=== PATIENT | female | born 1990 | race Caucasian/White ===

== ENCOUNTER 2022-07-28 17:07 | Inpatient (IN) | payer OTHER, SELFPAY ==
[2022-07-28 17:28] VITALS: BMI 35.7
[2022-07-28 17:30] VITALS: RESP 16; TEMP 36.9
[2022-07-28 17:35] VITALS: BP 133/84; PULSE 85
--- NOTE | 2022-07-28 18:12 | P.OBHP_ITS ---
OB - H&P: HPI Labor/Induction History of Present Illness Time Seen by Provider: 18:12 Date Seen: 07/28/22 Chief Complaint: The patient is a 32 year old 1 para 0 at 39 weeks gestation by LMP and consistent with 9 week ultrasound, who presents for induction of labor. Patient's primary FMOB is Dr. Lawrence, I am starting induction on her behalf. Chief complaint: IOL for EFW greater than 90% : 1 Para: 0 Narrative: Joanne Lee is a 32 year old female who presents for IOL for presumed macrosomia at 39 weeks gestation. Last ultrasound was EFW was 90%ile with abdominal circumference at 98th percentile. Per up to date, the recommendation is to consider induction with EFW between 4000 and 20582 grams at 39 weeks without diabetes. Patient feels well. She had some BH contractions over weekend. Otherwise feels well. No headaches ,vision changes. Mild edema in feet. Baby has been moving well. History of Present Dating criteria: based on LMP care: good care Ultrasounds: normal 1st trimester US and normal mid trimester US complications comment: macrosomia Medical complications: none Labs Blood type: O (+) positive Rubella: immune RPR/VDLR: nonreactive GBS status: negative HBsAG: negative Review of Systems Status of ROS: Reports: 10 or more systems reviewed and unremarkable except as noted in History and below Meds Home Medications and Allergies Home Medications Medication Instructions Recorded Confirmed Type ferrous sulfate 325 mg (65 mg 325 mg PO Q1D 07/28/22 07/28/22 History iron) tablet (FeroSul) vitamins no.144-folic 2 tab PO Q24H 07/28/22 07/28/22 History acid 400 mcg chewable tablet () Allergies Allergy/AdvReac Type Severity Reaction Status Date / Time No Known Drug Allergies Allergy Verified 07/28/22 18:20 OB - H&P: Exam Physical Exam: Vital signs: Temp Pulse Resp BP 98.5 F 85 16 133/84 07/28/22 17:30 07/28/22 17:35 07/28/22 17:30 07/28/22 17:35 Constitutional: Constitutional: no acute distress Routine HEENT Exam: Head: Present normocephalic Routine Neck Exam: Neck: Present full ROM Detailed Neck Exam: Thyroids: Thyroid: Present normal Routine Respiratory Exam: Respiratory: Present CTA bilaterally; Absent crackles Routine Cardiovascular Exam: Cardiovascular: RRR, S1 and S2 Routine Exam: Perineum Description: Normal Detailed Labor and Delivery Exam: Patient Gravid: Yes Dilation (cm): 1 Effacement (%): 20 Cervix position: posterior Consistency: medium Cervical ripeness score: 2 Tachysystole: No Contraction intensity: Mild Comments: irregular conractions Fetus (Single): Station: -3 Amniotic Membrane Status: intact Heart Rate Baseline: 140 Monitor Accelerations: Absent Monitor Decelerations: None Academic Department Chair Variability: Moderate (6-25) Routine Back/Spine/Pelvis Exam: Back/Spine: full ROM Routine Skin Exam: Present intact Routine Neurological Exam: Present alert and oriented X3 Routine Psychiatric Exam: Present normal affect OB - Problem Based A/P Additional Plan (1) Term : Status: Acute (2) Macrosomia affecting management of mother: Status: Acute Plan - IOL for size >90%ile - Cook catheter placed without difficulty. Filled with 60 mls on uterine and vaginal balloons. Baby and patient tolerated well. - Plan on low dose pitocin starting at midnight - Dr. Lawrence is available and will take over at 10pm this evening. Please call prn for concerns. Delivery/Labor/Induction Plan Plan: induction Induction method: Intracervical balloon catheter
[2022-07-28 19:26] VITALS: BP 143/93; PULSE 86
[2022-07-28 19:42] VITALS: BP 143/84; PULSE 80; RESP 18; TEMP 36.9
[2022-07-28 21:33] VITALS: BP 143/77; PULSE 84; RESP 18; TEMP 36.9
[2022-07-28 21:35] LABS: Basophils Absolute Auto 0.03 K/uL (0.00-0.30); Basophils Percent Auto 0.4 % (0.0-3.0); Eosinophils Absolute Auto 0.03 K/uL (0.00-0.50); Eosinophils Percent Auto 0.4 % (0.0-7.0); Hematocrit 37.1 % (33.0-51.0); Hemoglobin* 11.6 gm/dL (12.0-16.0); Immature Granulocytes Abs Auto 0.02 K/uL (0.00-0.30); Immature Granulocytes Pct Auto 0.2 %; Lymphocytes Percent Auto 11.6 % (20-44); Mean Corpuscular HGB Conc 31 gm/dL (32-36); Mean Corpuscular Hemoglobin 29 pg (26-34); Mean Corpuscular Volume 92 fL (80-100); Monocytes Percent Auto 6.4 % (0.0-11.0); Platelet Count* 255 K/uL (140-440); RDW Coefficient of Variation % 16.2 % (11.5-15.5); Red Blood Count 4.04 m/uL (4.00-5.20); White Blood Count* 8.43 K/uL (4.50-11.00)
[2022-07-28] MEDS: MORPHINE 10 MG/ML inj IM (21:36)
[2022-07-28] MEDS: hydrOXYzine pamoate 25 MG CAPSULE 100 MG PO (21:37)
[2022-07-28 21:38] LABS: Slide Review Reflex No
--- NOTE | 2022-07-28 21:56 | PM.OBPNL ---
Subjective Time Seen by Provider: 21:56 Date Seen: 07/28/22 Narrative: Called to patient's bedside for bleeding. Objective Exam: Cook catheter in place, scant bleeding Vital Signs: Last Vital Signs Temp 98.4 F 07/28/22 21:33 Pulse 84 07/28/22 21:33 Resp 18 07/28/22 21:33 BP 143/77 H 07/28/22 21:33 Contractions Monitor mode: External Contraction Frequency: 3-5 Contraction pattern: Irregular Contraction intensity: Mild Assessment Assessment: induction ongoing Station: -3 Heart Rate Baseline: 140 Monitor Accelerations: Absent Monitor Decelerations: None Plan Plan: - bleeding after placement of cook catheter-- thought to be bloody show from procedure. - Bleeding is decreasing, will continue to monitor. If it becomes more brisk would recommend removing catheter - Continuous monitoring - Pitocin (low dose) at 11pm - Dr. Lawrence is taking over care, may be reached with further concerns.
[2022-07-28] MEDS: OXYTOCIN 30 unit/500 ML in NS 30 UNIT/500 ML BAG IVPB (23:04)
[2022-07-28] MEDS: LACTATED RINGERS 1000 ML 1,000 ML 125 ML IV (23:05)
[2022-07-28 23:44] VITALS: BP 142/79; PULSE 91; RESP 16; TEMP 37.1
[2022-07-29] VITALS (42 sets, daily range): BP systolic 120–175; BP diastolic 60–91; PULSE 79–120; RESP 16–18; TEMP 36.6–37.1; O2SAT 98–100
[2022-07-29 00:22] LABS: Aspartate Amino Transferase* 27 U/L (12-35); Creatinine* 0.5 mg/dL (0.5-1.5); Est. Creatinine Clearance* 148.41; Estimated Glomerular Filt Rate 126 ml/min; Uric Acid* 4.3 mg/dL (2.2-8.4)
[2022-07-29 00:23] LABS: Alanine Aminotransferase* 19 U/L (4-35); Blood Urea Nitrogen* 8 mg/dL (5-24)
[2022-07-29 00:30] LABS: INR 0.93 (0.91-1.10)
[2022-07-29 00:33] LABS: Fibrinogen* 476 mg/dL (200-450); Partial Thromboplastin Time* 28 Seconds (23-33)
[2022-07-29 04:48] LABS: Total Protein Urine 10 mg/dL
[2022-07-29 04:49] LABS: Creatinine Urine 318.9 mg/dL
[2022-07-29] MEDS: LACTATED RINGERS 1000 ML 1,000 ML 117 ML IV (06:42)
--- NOTE | 2022-07-29 06:48 | PM.OBPNL ---
Subjective Time Seen by Provider: 06:48 Date Seen: 07/29/22 Narrative: 32 yo G1 at 39 weeks gestation admitted last night for induction due to EFW >90%. Cook catheter placed last night. Initially had some vaginal bleeding after placement but no significant bleeding since per nursing. Cook removed this morning after 12 hours. pt reports not feeling much now catheter is out. Overnight bp's were elevated to meet criteria for gestational htn in 140's/70-80's ranged. Preeclamptic labs/urine were negative. 1 bp this morning from automatic cuff was elevated further at 175/82 but catheter was in process of being taken out and pt was moving while cuff went off per pt and RN. recheck was 147/86. pt and nursing otherwise without ?'s or concerns. Objective Vital Signs: Last Vital Signs Temp 98.4 F 07/29/22 06:12 Pulse 103 H 07/29/22 06:27 Resp 16 07/29/22 06:12 BP 147/86 H 07/29/22 06:27 Pulse Ox 98 07/29/22 06:12 Pelvic Exam Dilation (cm): 5 Effacement (%): 60 Station: -3 Comments: cervix stretchy, head palpated but not engaged. Contractions Monitor mode: External Contraction Frequency: q5-10min Contraction pattern: Irregular Contraction intensity: Mild Pitocin Rate (mU/min): 8 Assessment Assessment: induction ongoing Station: -3 Heart Rate Baseline: 140 Performance Analyst Variability: Moderate (6-25) Monitor Accelerations: Present Monitor Decelerations: None Plan Plan: Induction: cook removed this morning. plan regular dose pitocin prototcol. known gbs negative. discussed induction course with pt Gestational htn: labs overnight okay. Continue monitor bp and s/s.
[2022-07-29] MEDS: TRANEXAMIC ACID 100 MG/ML INJ 1000 MG IV (07:45)
[2022-07-29] MEDS: LACTATED RINGERS 1000 ML 1,000 ML 105 ML IV (15:05)
--- NOTE | 2022-07-29 19:23 | P.OBPN_ITS ---
Subjective Time Seen by Provider: 07:00 Date Seen: 07/29/22 Narrative: Induction continues. Cook removed this morning and pitocin protocol changed to regular dosing protocol with cook removal this morning. Currently on 24 of pitocin. Most the day did not feel much in terms of contractions but last couple hours feeling more. pt rates still mild and RN reports palpate moderate. Per nursing, bp's mostly 130's/70-80's today. no bp's in severe range during day shift. remains asymptomatic Objective Vital Signs: Last Vital Signs Temp 97.8 F 07/29/22 16:54 Pulse 79 07/29/22 18:18 Resp 18 07/29/22 16:54 BP 137/73 07/29/22 18:18 Pulse Ox 98 07/29/22 06:12 Pelvic Exam Dilation (cm): 5 Effacement (%): 60 Station: -2 Comments: head engaged and not ballotable. Contractions Monitor mode: External Contraction pattern: Regular Contraction intensity: Moderate Pitocin Rate (mU/min): 24 Assessment Assessment: induction ongoing Station: -2 Amniotic Membrane Status: AROM Status: Category l Heart Rate Baseline: 150 Slag Dumper Variability: Moderate (6-25) Monitor Accelerations: Present Monitor Decelerations: None Plan Plan: induction at 39wks due to EFW> 90% -s/p cook overnight and pitocin all day. cervix remains 5cm but head has come down significantly as was prev floating and not central and now well applied. Discussed AROM and risks vs benefits and pt in agreement with AROM. AROM p erformed with blood tinged fluid. -Newly diagnosed gestational htn during induction. initial preeclamptic labs wnl. plan recheck tonight -All ?'s answered
[2022-07-29] MEDS: LACTATED RINGERS 1000 ML 1,000 ML IV (21:04)
[2022-07-29] MEDS: ROPIVACAINE 0.2 % PF 10 ML INJ 20 MG EPIDURAL (21:08)
[2022-07-29] MEDS: LIDOCAINE 2% (PF) 5 ML VIAL EPIDURAL (21:08)
--- NOTE | 2022-07-29 21:32 | PM.ANBPRC ---
PFSH PFSH Social History What is your current living situation: I presently have a place to live Problems where you live: no known problems In the past 12 months, utilities in danger of being shut off: no In the past 12 mos, have been you worried that your food would run out before you had money to buy more?: never true In the past 12 mos, the food you bought just didn't last and you didn't have money to buy more?: never true Smoking Status: Never smoker How often does anyone, including family, friends and others, physically hurt you: How often does anyone, including family, friends and others, insult or talk down to you: How often does anyone, including family, friends and others, threaten you with harm: How often does anyone, including family, friends and others, scream or curse at you: Meds Home Medications and Allergies Home Medications Medication Instructions Recorded Confirmed Type ferrous sulfate 325 mg (65 mg 325 mg PO Q1D 07/28/22 07/28/22 History iron) tablet (FeroSul) vitamins no.144-folic 2 tab PO Q24H 07/28/22 07/28/22 History acid 400 mcg chewable tablet () Allergies Allergy/AdvReac Type Severity Reaction Status Date / Time No Known Drug Allergies Allergy Verified 07/28/22 21:18 Results Labs Labs: Laboratory Results - last 24 hr 07/28/22 07/29/22 21:27 04:21 WBC 8.43 RBC 4.04 Hgb 11.6 L Hct 37.1 MCV 92 MCH 29 MCHC 31 L RDW Coeff of Joie 16.2 H Plt Count 255 Neut % (Auto) 81.0 H Lymph % (Auto) 11.6 L [place] % (Auto) 6.4 Eos % (Auto) 0.4 Baso % (Auto) 0.4 Neut # (Auto) 6.80 Lymph # (Auto) 1.00 [place] # (Auto) 0.50 Eos # (Auto) 0.03 Baso # (Auto) 0.03 INR 0.93 APTT 28 Fibrinogen 476 H BUN 8 Creatinine 0.5 Estimated Creat Clear 148.41 Estimated GFR 126 Uric Acid 4.3 AST 27 ALT 19 Urine Creatinine 318.9 Protein/Creatinin Ratio 0.00 Urine Total Protein 10 Blood Type O Positive Antibody Screen NEGATIVE Vital Signs Vital Signs: Last Vital Signs Temp 97.8 F 07/29/22 20:03 Pulse 102 H 07/29/22 21:31 Resp 18 07/29/22 20:03 BP 140/70 H 07/29/22 21:31 Pulse Ox 100 07/29/22 21:30 Weight: 100.471 kg Height: 167.64 cm Anesthesia Procedures Epidural Insertion Patient Location: OB Start Time: 08:45 Stop Time: 21:34 Start Date: 07/29/22 Stop Date: 07/29/22 Reason for Block: procedure for pain Patient Position: sitting Performed By: Jorgito Amaral Preanesthetic Checklist: IV checked, risks and benefits discussed, surgical consent, monitors and equipment checked, pre-op evaluation, timeout performed and anesthesia consent Prep: chlorhexidine gluconate Monitoring: blood pressure monitoring, continuous pulse oximetry and heart rate Approach: midline Vertebral Space: lumbar (1-5) Epidural Technique: CELINA air Needle Type: Tuohy needle Injection Technique: continuous catheter Needle gauge: 17 Needle Length (cm): 10 cm Needle Insertion Depth (cm): 7 Catheter Gauge: 19 Catheter Type: multi-orifice Catheter at skin depth (cm): 13 Test Dose Result: negative and lidocaine 1.5% with epinephrine 1 to 200,000
--- NOTE | 2022-07-29 22:15 | PM.OBPNL ---
Subjective Time Seen by Provider: 22:15 Date Seen: 07/29/22 Narrative: pt has now requested and received epidural--was breathing through ctxs and reported 7/10. now comfortable with epidural. FHT baseline did increase shortly before epidural placed with baseline increasing from 150's to 160's. Received IVF bolus with epidural and has returned now to 150's. had moderate variability and Accels with the tachycardia that has now resolved. Objective Vital Signs: Last Vital Signs Temp 98.5 F 07/29/22 22:09 Pulse 96 07/29/22 22:09 Resp 18 07/29/22 22:09 BP 141/72 H 07/29/22 22:09 Pulse Ox 100 07/29/22 21:30 Pelvic Exam Dilation (cm): 6 Effacement (%): 80 Station: -2 Contractions Monitor mode: External Contraction pattern: Regular Contraction intensity: Moderate Pitocin Rate (mU/min): 24 Assessment Assessment: active labor Station: -2 Amniotic Membrane Status: AROM Status: Category l Heart Rate Baseline: 150 [facility] Variability: Moderate (6-25) Monitor Decelerations: None Plan Plan: 1. now transitioning into active labor, plan continue current 2. FYI sent to OB oncall due to increased risk c/s, shoulder dystocia and PPH
[2022-07-29 22:46] LABS: Platelet Count* 256 K/uL (140-440)
[2022-07-29 22:47] LABS: Alanine Aminotransferase* 17 U/L (4-35); Aspartate Amino Transferase* 22 U/L (12-35); Creatinine* 0.5 mg/dL (0.5-1.5); Est. Creatinine Clearance* 148.41; Estimated Glomerular Filt Rate 126 ml/min
[2022-07-29] MEDS: LACTATED RINGERS 1000 ML 1,000 ML 125 ML IV (23:14)
[2022-07-30] VITALS (64 sets, daily range): BP systolic 106–142; BP diastolic 51–88; PULSE 82–122; RESP 16–18; TEMP 36.3–38.1; O2SAT 94–97
--- NOTE | 2022-07-30 00:39 | P.OBPN_ITS ---
Subjective Time Seen by Provider: 00:30 Date Seen: 07/30/22 Narrative: pt resting comfortably. RN checked and reported no cervical change. Objective Vital Signs: Last Vital Signs Temp 98.2 F 07/30/22 00:09 Pulse 102 H 07/30/22 00:09 Resp 18 07/30/22 00:09 BP 142/84 H 07/30/22 00:09 Pulse Ox 100 07/29/22 21:30 Pelvic Exam Dilation (cm): 6 Effacement (%): 80 Station: -2 Contractions Monitor mode: External Contraction Frequency: q3min Contraction pattern: Regular Contraction intensity: Moderate Pitocin Rate (mU/min): 26 Assessment Assessment: induction ongoing Station: -2 Amniotic Membrane Status: AROM Status: Category l Heart Rate Baseline: 155 Electrical Research Engineer Variability: Moderate (6-25) Monitor Accelerations: Present Monitor Decelerations: None Plan Plan: Cervix unchanged in last 2 hours. Discussed placing IUPC and this was placed without difficulty. Will monitor MVU's and determine next steps based on values. reviewed with pt. She did not have any ?'s
[2022-07-30] MEDS: ACETAMINOPHEN 500 MG TABLET 1000 MG PO (03:00)
--- NOTE | 2022-07-30 03:26 | P.OBPN_ITS ---
Subjective Time Seen by Provider: 03:27 Date Seen: 07/30/22 Narrative: I was notified that pt had developed tachycardia. We discussed IVF bolus and position change. Maternal temp 100.2, repeat later 100.6. Maternal pulse has been typically 95-110 over last 24 hours but increased to 117 when checked with temp 100.6. Pt reported mild headache starting, tylenol given. She is feeling contractions in lower pelvis but comfortable inbetween. BP's remain below severe range. Objective Vital Signs: Last Vital Signs Temp 100.6 F H 07/30/22 02:59 Pulse 117 H 07/30/22 03:23 Resp 18 07/30/22 01:00 BP 127/73 07/30/22 03:23 Pulse Ox 100 07/29/22 21:30 Pelvic Exam Dilation (cm): 6 Effacement (%): 90 Station: -1 Contractions Monitor mode: Internal Contraction Frequency: q3-4min Contraction pattern: Regular Pitocin Rate (mU/min): 27 Assessment Assessment: induction ongoing Station: -1 Amniotic Membrane Status: AROM Status: Category ll Heart Rate Baseline: 165 Combiner Operator Variability: Moderate (6-25) Monitor Accelerations: Present Monitor Decelerations: None Tracing Comments: FHT baseline has increased from 150's to 160-170's and remained in tachycardia range. Plan Plan: G1 at 39wks being induced for EFW >90%, now s/p Cook, pitocin and AROM. IUPC with variable MVU's adequate at times but <200 at times. Has made very slow cervical change. Now with s/s concerning for chorio and will start abxs. If headache not improve with tylenol, will repeat preeclamptic labs. BPs below severe range. Discussed case with Dr Pang, OB surgeon chief compressor station engineer. Plan at this time is to start abx for chorio, if tachycardia improves, plan increase pitocin for adequate MVU's. If not improving, will reassess. Discussed with pt and her mom at length. They did not have any ?'s.
[2022-07-30] MEDS: AMPICILLIN 2 GM in 0.9 % SODIUM CHLORIDE Mini-bag 100 ML IVPB ×2 (03:33→09:03)
[2022-07-30] MEDS: LACTATED RINGERS 1000 ML 1,000 ML 500 ML IV (03:34)
[2022-07-30] MEDS: ROPIVACAINE 0.2% 100 ml 100 ML 12 MG EPIDURAL (04:29)
[2022-07-30] MEDS: OXYTOCIN 30 unit/500 ML in NS 30 UNIT/500 ML BAG 27 UNIT IVPB (04:49)
--- NOTE | 2022-07-30 06:51 | P.OBCN_ITS ---
OB - CN: HPI Date of Consult Time Seen by Provider: 06:51 Date Seen: 07/30/22 Patient: [facility] Patient Consult date: 07/30/22 Requesting Physician: Diann Lawrence DO Primary Care Provider: Not a Local Provider Consult Narrative Reason for consult: arrest of labor Narrative: The patient is a 32 year old G 1 P 0 at 39.2 weeks gestation that was admitted to the Center on 07/28/22 for IOL for suspected macrosomia with EFW at greater than 90%tile with AC>97%tile. Please see H&P as dictated by Dr. Luna for details of her course. Her IOL started with cook cath and low dose pitocin. Cook cath was removed 12 hours later and pateint was 5/60/-3. AROM performed at 1915 on 07/29/2022 with clear fluid. She entered active labor at 2200 and has made minimal change. IUPC was placed overnight to help her achieve adequate MVU but adequate MVU was only achieved for intermittent short periods. Due to inadequate MVU, she was given >6 hours to make change. She is on treatment for chorioamnionitis with amp and gent. I examined her this AM 0630 and she is 6/75/-2. Cervix is stretchy and station is still high. This is consistent with suspected macrosomia and cephalopelvic disproportion. Due to arrest of active phase, I recommend CD. History of Present complications comment: macrosomia History History 1 Elective abortions Para 0 Spontaneous abortions Hx # Term Pregnancies Ectopic pregnancies Hx # Pregnancies Multiple births Number of Living Children 0 Labs Blood type: O (+) positive Rubella: immune RPR/VDLR: nonreactive GBS status: negative HBsAG: negative OB Labs: Lab Assessment Start: 07/28/22 17:22 Freq: ONCE Status: Complete Protocol: PC.OBGBS Activity Type Activity Date Activity User E-sign Co-sign Detail Recorded Client Recorded Date Recorded By Document 07/28/22 17:31 REYNOLD [id number] 07/28/22 17:32 CODIE REDMOND 07/28/22 17:31 Lab Assessment GBS Negative PFSH PFSH Social History What is your current living situation: I presently have a place to live Problems where you live: no known problems In the past 12 months, utilities in danger of being shut off: no In the past 12 mos, have been you worried that your food would run out before you had money to buy more?: never true In the past 12 mos, the food you bought just didn't last and you didn't have money to buy more?: never true Smoking Status: Never smoker How often does anyone, including family, friends and others, physically hurt you : How often does anyone, including family, friends and others, insult or talk down to you: How often does anyone, including family, friends and others, threaten you with harm: How often does anyone, including family, friends and others, scream or curse at you: Meds Home Medications and Allergies Home Medications Medication Instructions Recorded Confirmed Type ferrous sulfate 325 mg (65 mg 325 mg PO Q1D 07/28/22 07/28/22 History iron) tablet (FeroSul) vitamins no.144-folic 2 tab PO Q24H 07/28/22 07/28/22 History acid 400 mcg chewable tablet () Allergies Allergy/AdvReac Type Severity Reaction Status Date / Time No Known Drug Allergies Allergy Verified 07/28/22 21:18 OB - H&P: Exam Physical Exam: Vital signs: Temp Pulse Resp BP Pulse Ox 99 F 97 18 106/56 L 100 07/30/22 06:23 07/30/22 06:39 07/30/22 01:00 07/30/22 06:39 07/29/22 21:30 Narrative: Physical exam: General: Fatigued but in no acute distress Psych: Alert and oriented x3, full affect HEENT: Normocephalic, atraumatic Lungs: Unlabored breathing Neuro: No focal deficit. Mentating appropriately Abd: Gravid. No tender, non distended Pelvic exam: /-2. OB - Results Labs Labs: Short CBC 07/29/22 Range/Units 22:24 Plt Count 256 (140-440) K/uL BMP 07/29/22 22:24 Creatinine 0.5 Liver Function 07/29/22 Range/Units 22:24 AST 22 (12-35) U/L ALT 17 (4-35) U/L OB - CN: A/P Assessment and Plan (1) Term : Status: Acute (2) Macrosomia affecting management of mother: Status: Acute Plan CS Consent The patient was consented for section and blood. She understands that the three main categories of risk include bleeding, infection, and damage to surrounding structures. Regarding infection, she understands that we will be delivering appropriate antibiotics, however that the risk of infection following section still is approximately 5%. She understands that though the risk is very low that there is always a risk of damage to the bladder, uterus, ovaries, fallopian tubes, bowels, ureters, or even the fetus. She understands that most injuries can be addressed at the time of surgery, however, such an injury may require additional surgeries to fix. Lastly, she understands that a section carries a risk of bleeding, and that while this bleeding can be addressed with multiple medical and surgical modalities, that there is the possibility of needing a blood transfusion. She reports she would accept a blood transfusion understanding the risks of a 1/200,000 risk of Hepatitis and 1/2,000,000 risk of HIV as well as the risk of having an allergic reaction to the blood products. She further understands that this reaction is typically mild, however can be severe including respiratory distress and necessitating ICU-level care. Lastly, she understands that a section does increase risks for future pregnancies and deliveries including, but not limited to, the risk of uterine rupture or placenta accreta. - Hgb/plt 11.6/256 - Consent signed - Plan: Will proceed with CD
--- NOTE | 2022-07-30 07:14 | P.OBPN_ITS ---
Subjective Time Seen by Provider: 06:00 Date Seen: 07/30/22 Narrative: pt feeling exhausted. Temperature improved with tylenol. headache resolved. tachycardia resolved with antibiotics which were started around 3:30am for chorio. Pitocin up to 29 but MVU's not improving with increased pitocin. Objective Vital Signs: Last Vital Signs Temp 99 F 07/30/22 06:23 Pulse 99 07/30/22 07:09 Resp 18 07/30/22 01:00 BP 119/57 L 07/30/22 07:09 Pulse Ox 100 07/29/22 21:30 Pelvic Exam Dilation (cm): 6 Effacement (%): 90 Station: -1 Contractions Monitor mode: Internal Contraction Frequency: q3min Contraction pattern: Regular Pitocin Rate (mU/min): 29 Assessment Assessment: induction ongoing Station: -1 Amniotic Membrane Status: AROM Status: Category ll Heart Rate Baseline: 150 Trading Manager Variability: Moderate (6-25) Monitor Accelerations: Present Monitor Decelerations: None Plan Plan: pt continues with no significant cervical change. MVU's not consistently adequate but with increased pitocin, MVU's not necessarily improving and ac tually decreased at times. Has been on pitocin for >24 hours and now being treated for chorio. pt feeling exhausted. discussed induction course and options with pt. risks vs benefits reviewed. Induction is not progressing and infant with known increased EFW with what appears to be CPD. I discussed with OB surgeon Dr Pang who agreed to come assess patient for likely c/s. see her note for details.
--- NOTE | 2022-07-30 07:17 | W.ANESCHARGE ---
Anesthesia Charges Start Date/Time Anesthesia Start Date: 07/30/22 Anesthesia Start Time: 07:20 Stop Date/Time Anesthesia Stop Date: 07/30/22 Anesthesia Stop Time: 08:40
[2022-07-30] MEDS: ONDANSETRON 2 MG/ML inj 4 MG IVP (07:25)
[2022-07-30] MEDS: metroNIDAZOLE 500 MG/100 ML PIGGYBACK IVPB ×2 (07:30→15:00)
[2022-07-30] MEDS: LACTATED RINGERS 1000 ML 1,000 ML 125 ML IV (07:55)
[2022-07-30] MEDS: KETOROLAC 30 MG/ML inj IVP ×3 (08:08→20:16)
--- NOTE | 2022-07-30 08:18 | P.OBPRC_ITS ---
Procedure Procedure Done: Global Anesthesia type: Epidural Complications: DELIVERY BY SECTION Date of Service: 07/30/2022 Delivery time: 0743 Summary: Admitted for induction of labor at 39 weeks due to suspected macrosomia by family medicine service, Primary Lower uterine transverse section, Pfannenstiel, Closed with sutures, QBL 571 cc, no complications, Findings: Fetus straight OP with tight nuchal, Normal uterus, bilateral ovaries and tubes 8, 9, weight 3890 g. Primary Indication: Arrest of dilation in the active phase Chorioamnionitis Procedures: Primary Lower uterine transverse section Specimens Removed: Placenta Surgeon: Gerda Pang MD Anesthesia: Epidural and TAP Report: Prophylactic antibiotic, gentamicin 5mg/kg, ampicillin 2g, and metronidazole 500 mg was given before patient was taken to OR. After arrival to the operating room patient was placed in the supine position with left lateral tilt after dosing of epidural anesthesia. Laparotomy A pfannenstiel incision was made through the anterior abdominal wall with #10 scalpel approximately 2 cm above the pubic symphysis. The incision was extended sharply with the #10 scalpel through the subcutaneous tissue to the level of fascia. The fascia was entered sharply with a #10 scalpel (Pfannenstiel) in the midline and extended in semi-elliptical fashion with Jones scissor. The underlying muscles were dissected off the overlying fascia by grasping the superior aspect of fascia with two brittany clamps and blunt dissection was used along the midline. The fascia was further from rectus muscle with Jones scissor and/or cautery. In similar fashion, the lower aspect of fascia was also grasped with two Brittany clamps and both blunt and sharp dissection was used to separate fascia from rectus muscle. The rectus muscles were in the midline bluntly with digits. The peritoneum was then entered bluntly. The peritoneal incision was then extended superiorly and inferiorly under direct visualization with care being taken to avoid bladder and bowel. No adhesions were noted. The peritoneal incision was enlarged bluntly by lateral traction from the surgeon's and assistant professor of life sciences's hand. Sixto retractor was inserted into the abdomen. Delivery A bladder flap was developed by grasping with [place] forcep and enter with Metzenbaun scissor. Then sharp and blunt dissection with Metzenbaum scissor and fingers were performed. A low transverse hysterotomy was made then with #10 scalpel and extended laterally and cephalad with fingers in a low transverse fashion with Manu Latham technique with care being taken to avoid injury to the fetus. The amniotic cavity (membrane) was already ruptured, and the amniotic fluid was noted to be clear at time of hysterotomy as well, fetus was delivered cephalic. Tight nuchal noted and reduced at hysterotomy. With delivery of the baby, no extension was noted. Placenta was delivered spontaneously with steady traction on cord and manual separation of placenta from uterine wall. Closure Uterine cavity was cleaned after placental delivery with lap sponge x 2. The hysterotomy was closed in one layer with stitches using 0 vicryl with continuous locking stitches. Another imbricating layer with 0 Monocryl was placed. Two [id number] were placed at the left uterine angle. Hemostasis was achieved as needed with electrocautery. The ovaries/tubes/uterine surface were evaluated. They were found to be normal. Sixto retractor removed and hemostasis was confirmed again. Fascia was closed with running stitches using 0 Vicryl. Hemostasis was checked for and found to be adequate. The subcutaneous layer was closed with running 2-0 chromic sutures. The skin was closed with monocryl subcuticular sutures. The incision was cleaned and covered with a compression bandage and the procedure considered terminate at this time. Intraoperative Complications: None QBL: 571 cc Uterotonics: 40 u of Pitocin, 1g TXA Disposition: The patient tolerated the procedure well. She was recovered in OB PACU for close monitoring in stable condition, with a contracted uterus and normal transvaginal bleeding. The infant was sent to mother?s bedside/PACU. The placenta was not sent to pathology. Disposition: PACU total score - 1 minute: 8 total score - 5 minute: 9
--- NOTE | 2022-07-30 08:24 | W.ANESCHARGE ---
Anesthesia Charges Start Date/Time Anesthesia Start Date: 07/30/22 Anesthesia Start Time: 07:20 Stop Date/Time Anesthesia Stop Date: 07/30/22 Anesthesia Stop Time: 08:40
--- NOTE | 2022-07-30 08:40 | P.NB_ITS ---
Nerve Block Nerve Block Time Seen by Provider: 08:30 Date Seen: 07/30/22 Type of block requested by surgeon for post-operative analgesia: TAP Side: bilateral Time out performed: Yes Verification of patient name: Yes Verification of date of : Yes Site marking: site marked Name of person performing procedure: [place] Continuous monitoring Was continuous monitoring of O2 sat, B/P, commercial airplane pilot, recorded every 15 minutes?: Yes Procedure Checklist: sterile prep, needles and gloves Ultrasound guided. Images saved: Yes Medications given in 5ml increments after negative aspiration: Marcaine %: 0.25 mL: 30 Needle gauge: 20 and Exparel mL: 10 Patient tolerated procedure well: Yes Additional comments: Needle noted adjacent to nerve Block Charges Block Charge (with Pro Fee): TAP Bilateral Use of Ultrasound Machine for Block: Yes- US Guidance/pain block
[2022-07-30] MEDS: diphenhydrAMINE 50 MG/ML inj 12.5 MG IVP ×2 (11:08→20:17)
[2022-07-30] MEDS: ENOXAPARIN 40 MG/0.4 ML INJ SUBCUT (20:16)
[2022-07-31] VITALS (14 sets, daily range): BP systolic 105–128; BP diastolic 64–83; PULSE 80–90; RESP 14–18; TEMP 36.3–36.7; O2SAT 93–97
[2022-07-31] MEDS: KETOROLAC 30 MG/ML inj IVP ×3 (02:02→15:17)
[2022-07-31] MEDS: LACTATED RINGERS 1000 ML 1,000 ML 125 ML IV (03:15)
--- NOTE | 2022-07-31 07:50 | PM.OBPNCS1 ---
OB - PN: A/P Assessment and Plan (1) care and examination immediately after delivery: Status: Acute (2) Anemia due to acute blood loss: Status: Acute (3) Lactating mother: Status: Acute (4) Chorioamnionitis, delivered, current hospitalization: Status: Acute (5) delivery delivered: Status: Acute Plan day: 1 Plan: routine postop care Comments: Routine care, pain control. Lactating mother. May see if desired. Anemia due to acute blood loss. Iron supplement started q 48 hours. Chorio during labor, afebrile since delivery. Continue to monitor vitals. Anticipate discharge tomorrow, 08/01 or the following day, 08/02. OB - PN: Subj Subjective Date Seen: 07/31/22 Interval history: Joanne is a 32 y.o. who was admitted to [facility] & [facility] for induction of labor for suspected macrosomia. Her labor was complicated by chorioamnionitis and failure to progress.?She had an uncomplicated .? Narrative: Joanne is a 32 y.o. who was admitted to [facility] for induction of labor for suspected macrosomia. Her labor was complicated by chorioamnionitis and failure to progress.?She had an uncomplicated .?The patient feels well. She has been afebrile since 07/30/22 at 2 am.?The pain is well controlled with current medications. ?She has no new complaints. She is breast feeding and reports things are going well.? the patient has done well.? Vitals have been stable.? She has remained afebrile.? Has a good appetite, is tolerating a general diet. ?She is voiding without difficulty.? She is passing gas and has not had a bowel movement.? She is ambulating and denies any dizziness.? Has small amount of rubra lochia. OB - PN: Obj Exam Physical Exam: Vital signs: Temp Pulse Resp BP Pulse Ox O2 Del Method 98.1 F 84 16 120/64 94 Room Air 07/31/22 07:17 07/31/22 07:17 07/31/22 07:17 07/31/22 07:17 07/31/22 07:17 07/31/22 07:17 Narrative: GENERAL APPEARANCE:? normal affect, alert, no distress MOOD:? appropriate CHEST:? clear to auscultation HEART:? regular rate and rhythm ABDOMEN:? soft, non-tender the uterine fundus is At Umbilicus, Midline and is appropriate for the stage of recovery. PERINEUM:? mild edema of the perineum EXTREMITIES:? normal and trace edema INCISION: Dressing in place; clean, dry, and intact. Dressing to remain in place for 7 days. OB - PN: Obj Data Labs Labs: Laboratory Results - last 24 hr 07/31/22 07:29 Hgb 9.0 L
[2022-07-31] MEDS: DOCUSATE SODIUM 100 MG CAPSULE PO (08:34)
[2022-07-31] MEDS: ACETAMINOPHEN 500 MG TABLET 1000 MG PO ×2 (08:37→16:13)
[2022-07-31] MEDS: FERROUS SULFATE 325 MG TABLET PO (08:39)
[2022-07-31] MEDS: IBUPROFEN 600 MG TABLET PO (21:06)
[2022-08-01 04:46] VITALS: BP 131/76; PULSE 77; RESP 18; TEMP 36.6; O2SAT 99
[2022-08-01] MEDS: ACETAMINOPHEN 500 MG TABLET 1000 MG PO (04:52)
--- NOTE | 2022-08-01 07:36 | P.DS_ITS ---
DS: Providers Provider Date Seen: 08/01/22 Date of admission: 07/28/22 17:07 Primary care physician: Not a Local Provider Admitting Clinician: Annabella Luna MD Attending Physician on discharge: Gerda Pang MD Date of Discharge: 08/01/22 DS: Diagnosis Discharge Diagnosis (1) care and examination immediately after delivery: Status: Acute (2) delivery delivered: Status: Acute (3) Lactating mother: Status: Acute Exam Narrative: Exam Narrative: GENERAL APPEARANCE:? normal affect, alert, no distress? MOOD:? appropriate? CHEST:? clear to auscultation and percussion? HEART:? regular rate and rhythm? ABDOMEN:? soft, non-tender the uterine fundus is 1 cm Below Umbilicus, Midline and is appropriate for the stage of recovery. Incision dressed with dressing clean dry and intact. Dressing is to be removed in 7 days.?? EXTREMITIES:? normal and no edema? Patient has no complaints? No active bleeding?? Doing well? She is requesting discharge home.? Const: Vital Signs, click to edit/add: Vital Signs - 24 hr 07/31/22 08:00 07/31/22 11:17 07/31/22 16:05 Temperature 97.8 F 97.9 F Pulse Rate [Pulse Oximeter] 81 90 Respiratory Rate 16 16 16 Blood Pressure [Ri ght Arm] 114/69 128/76 Pulse Oximetry 96 97 Oxygen Delivery Me thod Room Air Room Air 07/31/22 21:03 07/31/22 23:56 08/01/22 04:46 Temperature 97.4 F L 97.7 F 97.8 F Pulse Rate [Pulse Oximeter] 80 86 77 Respiratory Rate 18 18 18 Blood Pressure [Ri ght Arm] 105/69 124/83 131/76 Pulse Oximetry 97 97 99 Oxygen Delivery Me thod Room Air Room Air Room Air Documenting provider has reviewed patient's vital signs: yes DS: Data Data Completed and Pending Labs on day of discharge: Labs from last 24 hours 07/31/22 07:29 Hgb 9.0 L OB - DS: Summary Hospital Course Hospital Course: Patient is a 32year old, G 1 now P 1? admitted on 07/28/22 at 39 Weeks, 2 Days gestation for IOL for suspected macrosomia.? She had an delivery complicated by chorioamnionitis.? She delivered a viable female infant.? She is breast feeding and reports things are well.? the patient has done well.? Her pain is well controlled with current medications. She has not needed oxycodone and declines the need for a prescription.? She has no new complaints.? Vitals have been stable. She has remained afebrile. She is voiding without difficulty. She is passing gas and has not had a bowel movement. She is ambulating and denies any dizziness. She is considering mini pill for control but is unsure. Optimal options while were reviewed.??She is and reports that she is experiencing some monty ess but otherwise it is going well.? Peripartum Data Procedures: Procedures Operation Date: 07/30/22 07:30 Actual Procedure Side Surgeon p Section Gerda Pang MD complications: none Winder Infant Gender: Female Infant Discharge Plan: Home Status at Discharge Functional status at discharge: independent ambulation Overall status at discharge: patient is progressing back to baseline Time Spent with Patient Time attestation: Total time spent providing and/or coordinating discharge services: Discharge Plan Discharge Disposition: Home, Self-Care Date of Admission: 07/28/22 17:07 Attending Provider on Discharge: Claire Desai Primary Care Provider: Provider,Not a Local Condition: Stable Anticipated Discharge Date/Time: 08/01/22 11:00 Discharge Medications: New docusate sodium 100 mg Capsule 100 mg PO DAILY Qty: 90 0RF Rx Instructions: Take 1-2 tablets daily as needed for constipation. ibuprofen 600 mg Tablet 600 mg PO Q6H PRN (Reason: Pain) Qty: 90 0RF Continued 400 mcg tablet,chewable 2 tab PO Q24H ferrous sulfate [FeroSul] 325 mg (65 mg iron) tablet 325 mg PO Q1D Discharge Orders: Discharge Order (Routine); Ordered 08/01/22 Ordered By: Claire Desai Patient Education: OB Over the Counter Medication Information, OB /Breast Feeding Additional Instructions: Discharge instructions were reviewed with the patient including signs and symptoms of infection and home going medications? ?? Activity restrictions:? Lifting Restrictions: 20 pounds for 6 weeks? No high-impact or core exercises for 6 weeks.?? No not submerge incision under water X 2 weeks?? Nothing vaginally for 6 weeks: no tampons or intercourse? Do not drive while taking narcotic pain medication(s)? Off Work or School for 8 weeks? ?? Symptoms to report to doctor:? -Bleeding that saturates more than one pad per hour? -Passing clots larger than the size of a golf ball? -Pain not relieved by prescribed medication? -Fever above 100.4 degrees Fahrenheit? -A foul vaginal odor? -Difficulty in emotions, mood and functions? -Thoughts of hurting yourself and/or ? -Painful, reddened area in your breast? -Any drainage, redness or tenderness in your IV/epidural site? -Severe headache that doesn't improve after taking medications? -Changes in vision, including temporary loss of vision, blurred vision, and/or light sensitivity? -Upper abdominal pain (usually under ribs on the right side)? -Decrease in urination or painful, frequent urinating? -Chest pain? -Shortness of breath? -Tenderness or pain with redness and/swelling in the calf(s) of your leg? Follow up visits:?? 1. 1 week visit:? remove dressing and incision check.? 2. 2-week visit (optional): discuss feeding/care concerns, review control options and screen for anxiety/depression.? 3. 6-week visit for an annual exam.? ?? consultation services are available to all mothers and babies for the first year after delivery.? To make an appointment, please call [phone].? Activity Level: Activity as Tolerated Discharge Diet: Regular Follow Up Appointments: [facility] [Provider Group] Provider,Not a Local [Primary Care Provider] - Annabella Luna MD [Staff Physician] - Forms: [employer] Info Instructions
[2022-08-01] MEDS: DOCUSATE SODIUM 100 MG CAPSULE PO (09:24)
[2022-08-01] MEDS: IBUPROFEN 600 MG TABLET PO (09:24)
[2022-08-01 09:37] VITALS: BP 119/75; PULSE 77; RESP 16; TEMP 36.5; O2SAT 99
== END 2022-08-01 13:00 | disposition home or self-care (01) | DRG 786 ==
PROVIDERS: Family Medicine; Admitting Provider Family Medicine; Visit Provider Obstetrics & Gynecology
PROC: 10D00Z1 Extraction of Products of Conception, Low, Open Approach (ICD-10-PCS; CPT 59514; principal; 2022-07-30 07:15)
DX: O36.63X0 Maternal care for excessive fetal growth, third trimester, not applicable or unspecified (principal); O41.1230 Chorioamnionitis, third trimester, not applicable or unspecified; D62 Acute posthemorrhagic anemia; O62.0 Primary inadequate contractions; O76 Abnormality in fetal heart rate and rhythm complicating labor and delivery; O13.4 Gestational [pregnancy-induced] hypertension without significant proteinuria, complicating childbirth; O90.81 Anemia of the puerperium; Z3A.39 39 weeks gestation of pregnancy; Z37.0 Single live birth; G89.18 Other acute postprocedural pain
CPT/HCPCS: 01961; 01967; 01968; 36415; 59200; 64488; 76815; 76942; 82565; 82570; 84156; 84450; 84460; 84520; 84550; 85018; 85025; 85049; 85384; 85610; 85730; 86850; 86900; 86901; A9270; C1726; C9290; J0290; J1200; J1580; J1650; J1885; J2250; J2270; J2274; J2370; J2405; J2590; J2704; J2795; J3010; J3490; J7120; S0030

== ENCOUNTER 2022-08-05 11:58 | Outpatient (CLI) | payer OTHER, SELFPAY | END 2022-08-05 11:59 | disposition home or self-care (01) | PROVIDERS: Visit Provider Physician Assistant | DX: I10 Essential (primary) hypertension (principal) | CPT/HCPCS: 82565; 82570; 84156; 84450; 84460; 84520 ==